=== PATIENT | male | born 1990 ===

== ENCOUNTER 2017-04-14 10:07 | Emergency (ER) | payer OTHER ==
--- NOTE | 2017-04-14 10:32 | ED PDOC ---
HPI: Psych/Substance Abuse Time Seen by Provider: 04/14/17 10:20 Chief Complaint (Nursing): Alcohol Ingestion Chief Complaint (Provider): etoh Additional Complaint(s): 26yo M in ED bought to ED by EMT for eval of intoxication -was picked up because police were concerned about intoxication. pt without SI/HI. no ETOH noted on breath Past Medical History Reviewed: Historical Data, Nursing Documentation, Vital Signs - Medical History PMH: No Chronic Diseases - Family History Family History: States: No Known Family Hx - Allergies Allergies/Adverse Reactions: Allergies Allergy/AdvReac Type Severity Reaction Status Date / Time No Known Allergies Allergy Verified 04/14/17 10:22 Review of Systems ROS Statement: Except As Marked, All Systems Reviewed And Found Negative Psych: Negative for: Suicidal ideation, Withdrawal Physical Exam - Reviewed Nursing Documentation Reviewed: Yes Vital Signs Reviewed: Yes - Physical Exam Appears: Positive for: Well, Non-toxic, No Acute Distress Head Exam: Positive for: ATRAUMATIC, NORMAL INSPECTION, NORMOCEPHALIC Skin: Positive for: Normal Color, Warm, DRY Eye Exam: Positive for: EOMI, Normal appearance, PERRL Cardiovascular/Chest: Positive for: Regular Rate, Rhythm Respiratory: Positive for: CNT, Normal Breath Sounds Neurologic/Psych: Positive for: Alert, Oriented - Progress ED Course And Treament: pt with very stable gait, normal speech normal FS. Medical Decision Making Medical Decision Making: pt will be d/c home-pt will call taxi service. Disposition - Clinical Impression Clinical Impression: Alcohol abuse - Patient ED Disposition Is Patient to be Admitted: No Counseled Patient/Family Regarding: Diagnosis, Need For Followup - Disposition Disposition: Routine/Home Disposition Time: 10:32 Condition: STABLE Instructions: Alcohol Dependence (ED) Print Language: [place]
== END 2017-04-14 10:57 | disposition home or self-care (01) ==
LOC: H.ER 10:07
DX: F10.10 Alcohol abuse, uncomplicated (principal)